=== PATIENT | female | born 1960 | race Caucasian/White ===

== ENCOUNTER 2020-07-04 16:59 | Emergency (ER) | payer SELFPAY ==
[~2020-07-04] VITALS: Ht 162.6 cm; Wt 64.0 kg
[2020-07-04] MEDS ORDERED: cloNIDine HCL 0.1 MG TABLET PO ONE (17:30)
[2020-07-04] MEDS ORDERED: LORazepam 1 MG TABLET PO ONE ×2 (17:30→19:30)
--- NOTE | 2020-07-04 17:30 | PHYS DOC ---
Adult General Chief Complaint Chief Complaint: DRUG ABUSE HPI HPI Patient is a 59-year-old female with a known past medical history of opioid dependence now presenting emergency department due to concern for opiate withdrawal. Patient states that she is been using heroin daily for the last 3 years. Recently to the area has not been able to have access to it. Patient states she has been on Klonopin for her symptoms but has not improved. Patient does states that she has been on methadone in the past. She currently complaining of agitation, sweats and feeling anxious. Denies any fever, chills, nausea, vomiting, chest pain or shortness of breath. (STU CHE MD) Review of Systems Review of Systems Constitutional: Denies fever or chills [] Eyes: Denies change in visual acuity, redness, or eye pain [] HENT: Denies nasal congestion or sore throat [] Respiratory: Denies cough or shortness of breath [] Cardiovascular: No additional information not addressed in HPI [] GI: Denies abdominal pain, nausea, vomiting, bloody stools or diarrhea [] : Denies dysuria or hematuria [] Musculoskeletal: Denies back pain or joint pain [] Integument: Denies rash or skin lesions [] Neurologic: Denies headache, focal weakness or sensory changes [] Endocrine: Denies polyuria or polydipsia [] All other systems were reviewed and found to be within normal limits, except as documented in this note. (STU CHE MD) Physical Exam Physical Exam Constitutional: Well developed, well nourished, no acute distress, non-toxic appearance. [] HENT: Normocephalic, atraumatic, bilateral external ears normal, oropharynx moist, no oral exudates, nose normal. [] Eyes: PERRLA, EOMI, conjunctiva normal, no discharge. [] Neck: Normal range of motion, no tenderness, supple, no stridor. [] Cardiovascular:Heart rate regular rhythm, no murmur [] Lungs & Thorax: Bilateral breath sounds clear to auscultation [] Abdomen: Bowel sounds normal, soft, no tenderness, no masses, no pulsatile masses. [] Skin: Warm, dry, no erythema, no rash. [] Back: No tenderness, no CVA tenderness. [] Extremities: No tenderness, no cyanosis, no clubbing, ROM intact, no edema. [] Neurologic: Alert and oriented X 3, normal motor function, normal sensory function, no focal deficits noted. [] Psychologic: Affect normal, judgement normal, mood normal. [] (STU CHE MD) EKG EKG [] (STU CHE MD) EKG My interpretation EKG shows a sinus rhythm at 75 bpm. There is slightly p rolonged QT interval of 422 ms, there is also a QTc interval of 774 ms. No findings acute STEMI of contralateral changes. Patient denies further fluids. Follow-up primary care. Push fruit juices and subsequently potassium. (RADHA SARMIENTO MD) Radiology/Procedures Radiology/Procedures [] (STU CHE MD) Heart Score Risk Factors: Risk Factors: DM, Current or recent (<one month) smoker, HTN, HLP, family histo ry of CAD, obesity. Risk Scores: Risk Factors: DM, Current or recent (<one month) smoker, HTN, HLP, family history of CAD, obesity. (STU CHE MD) C/O Chest Pain: N/A HEART Score for Chest Pain: HEART Score for Chest Pain Response (Comments) Value History Slighlty/Non-Suspicious 0 ECG Normal 0 Age < 45 0 Risk Factors No Risk Factors 0 Troponin < Normal Limit 0 Total 0 (RADHA SARMIENTO MD) Course & Med Decision Making Course & Med Decision Making Pertinent Labs and Imaging studies reviewed. (See chart for details) [] (STU CHE MD) Course & Med Decision Making See Chart for details. Pt. elects to discharge home declines referral to [facility] and evaluation for drug rehab. Patient states she wants to get back on methadone. Patient states she has contacts in [place] that will work with her and reestablish care on return home today. Patient not currently driving. Patient push fruit juices. Patient follow-up primary care. Patient return if any concerns. Impression: 1. Polysubstance abuse (drug screen tonight positive for methamphetamine, benzodiazepines, cocaine and narcotics) 2. Heroin dependent 3. Hypokalemia 3.0 4. Mild anemia hemoglobin 11 5. History of anxiety (RADHA SARMIENTO MD) Dragon Disclaimer Dragon Disclaimer This electronic medical record was generated, in whole or in part, using a voice recognition dictation system. (STU CHE MD) Departure Departure: Impression: Primary Impression: Opiate abuse, continuous Dragon Disclaimer This chart was dictated in whole or in part using Voice Recognition software in a busy, high-work load, and often noisy Emergency Department environment. It may contain unintended and wholly unrecognized errors or omissions. (RADHA SARMIENTO MD) STU CHE MD Jul 04, 2020 17:30 RADHA SARMIENTO MD Jul 04, 2020 19:39
--- NOTE | 2020-07-04 18:10 | EKG ---
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
[2020-07-04 18:36] LABS: BASO % 0 % (0-3); EOS % 0 % (0-3); HEMATOCRIT 34.4 % (36.0-47.0); LYMPH # 1.2 x10^3/uL (1.0-4.8); LYMPH % 19 % (24-48); MEAN CORPUSCULAR HEMOGLOBIN 27 pg (25-35); MEAN CORPUSCULAR HGB CONC 32 g/dL (31-37); MEAN CORPUSCULAR VOLUME 84 fL (79-100); MONO # 0.3 x10^3/uL (0.0-1.1); MONO % 4 % (0-9); NEUT # 4.6 x10^3uL (1.8-7.7); NEUT % 76 % (31-73); PLATELET COUNT 237 x10^3/uL (140-400); WHITE BLOOD COUNT 6.1 x10^3/uL (4.0-11.0)
[2020-07-04 18:44] LABS: CALCIUM 8.3 mg/dL (8.5-10.1); CREATININE 0.7 mg/dL (0.6-1.0); GFR 85.9; MAGNESIUM 1.7 mg/dL (1.8-2.4)
[2020-07-04] MEDS ORDERED: MORPHINE SULFATE 10 MG/ML SYRINGE. SQ ONE (18:45)
[2020-07-04 18:47] LABS: BARBITURATES NEG (NEG); BENZODIAZEPINES POS (NEG); CANNABINOIDS NEG (NEG); COCAINE POS (NEG); METHADONE NEG (NEG); OPIATES POS (NEG); PHENCYCLIDINE NEG (NEG)
[2020-07-04 18:49] LABS: BACTERIA,URINE 0 /HPF (0-FEW); BILIRUBIN,URINE NEG (NEG); CLARITY,URINE HAZY; COLOR,URINE AMBER; GLUCOSE,URINE NEG (NEG); NITRITE,URINE NEG (NEG); SQUAMOUS EPITHELIAL CELL,UR OCC /LPF; WBC,URINE 0 /HPF (0-4)
[2020-07-04 18:51] LABS: AMPHETAMINE/METHAMPHETAMINE POS (NEG)
[2020-07-04] MEDS ORDERED: MAGNESIUM HYDROXIDE 2,400 MG/30 ML ORAL.SUSP. PO ONE (19:30)
[2020-07-04] MEDS ORDERED: ONDANSETRON ODT 4 MG TAB.RAPDIS PO ONE (19:30)
[2020-07-04] MEDS ORDERED: POTASSIUM CHLORIDE 10 MEQ TABLET.ER. PO ONE (19:30)
[2020-07-04 20:20] VITALS: BP 135/85
== END 2020-07-04 20:28 | disposition home or self-care (01) ==
LOC: ER 16:59
DX: F11.23 Opioid dependence with withdrawal (principal)
CPT/HCPCS: 36415; 80048; 80307; 81001; 82553; 83735; 85025; 93005; 96372; 99284; J2270; Q0162